=== PATIENT | female | born 1960 | race Caucasian/White ===

== ENCOUNTER 2018-01-10 01:10 | Inpatient (IN) ==
[2018-01-10 01:59] LABS: Basophils % 0.2 % (0.0-0.8); Hematocrit 24.3 VOL% (35.7-47.0); Hemoglobin 7.6 GM/DL (12.0-16.0); Immature Granulocytes % 1.5 %; Immature Granulocytes Absolute 0.31 #; Lymphocytes # 1.1 10*3/uL (1.4-4.0); Mean Corpuscular HGB Conc 31.3 GM/DL (32-36); Mean Corpuscular Hemoglobin 19 PG (27-34); Mean Corpuscular Volume 61.4 FL (87-102); Mean Platelet Volume 9.9 FL (9.6-12.0); Monocytes % 4.6 % (1.7-12.7); Neutrophils # 18.8 10*3/uL (1.4-7.4); Neutrophils % 88.7 % (38.7-73.9); Platelet Count 218 T/CUMM (130-400); Red Blood Count 3.96 MC/CUMM (3.8-5.5); Red Cell Distribution Width 19.2 % (9.3-17.3); White Blood Count 21.2 T/CUMM (4-12)
[2018-01-10 02:09] LABS: INR 1.1; PT Patient Result 11.3 SECS; Partial Thromboplastin Time 26.4 SECS (0-40)
[2018-01-10 02:13] LABS: Alanine Aminotransferase 11 U/L (13-56); Alkaline Phosphatase 95 U/L (45-117); Aspartate Amino Transferase 18 U/L (0-37); Bilirubin,Total < 0.39 MG/DL (0.2-1.0); Blood Urea Nitrogen 14 MG/DL (7-18); Calcium 7.8 MG/DL (8.5-10.1); Glucose 201 MG/DL (74-106); Osmolality,Calculated 266.8 MOS/KG (273-304); Potassium 3.5 MMOL/L (3.5-5.1); Sodium 130 MMOL/L (136-145); Total Protein 5.6 G/DL (6.4-8.3); Troponin I Only < 0.015 NG/ML (0.00-0.045)
[2018-01-10 02:38] LABS: Band Neutrophils 1 % (0-10); Lymphocytes 6 % (20-55); Segmented Neutrophils 91 % (50-85); Total Cells Counted 100
[2018-01-10 02:40] LABS: Hypochromasia 2+; Microcytosis 1+; Platelet Estimate Normal; Target Cells Few
[2018-01-10 02:41] LABS: Elliptocytes Few
[2018-01-10] MEDS ORDERED: DEXTROSE 50% 25 GM/50 ML VIAL IV PRN (04:25)
[2018-01-10] MEDS ORDERED: CALCIUM GLUCONATE 1,000 MG in SODIUM CHLORIDE 0.9% 100 ML IV ONE ×2 (04:25→08:19)
[2018-01-10] MEDS ORDERED: FUROSEMIDE 40 MG/4 ML VIAL IV ONE (04:25)
[2018-01-10] MEDS ORDERED: MORPHINE 2 MG/1 ML SYRINGE IV PRN (04:25)
[2018-01-10] MEDS ORDERED: GLUCAGON 1 MG VIAL IM PRN (04:25)
[2018-01-10] MEDS ORDERED: PIPERACILLIN/TAZOBACTAM 2,250 MG in SODIUM CHLORIDE 0.9% 100 ML IV SCH (05:00)
[2018-01-10] MEDS: PIPERACILLIN/TAZOBACTAM 3,375 MG in SODIUM CHLORIDE 0.9% 100 ML IV SCH ×3 (05:57→22:13)
[2018-01-10 06:20] LABS: Basophils % 0.1 % (0.0-0.8); Hematocrit 21.9 VOL% (35.7-47.0); Hemoglobin 6.8 GM/DL (12.0-16.0); Immature Granulocytes % 0.8 %; Immature Granulocytes Absolute 0.13 #; Lymphocytes # 1.4 10*3/uL (1.4-4.0); Lymphocytes % 8.7 % (21.3-54.2); Mean Corpuscular HGB Conc 31.1 GM/DL (32-36); Mean Corpuscular Hemoglobin 19 PG (27-34); Mean Corpuscular Volume 61.9 FL (87-102); Mean Platelet Volume 10.2 FL (9.6-12.0); Monocytes # 0.7 10*3/uL (0.11-0.8); Monocytes % 4.4 % (1.7-12.7); Neutrophils # 13.6 10*3/uL (1.4-7.4); Platelet Count 209 T/CUMM (130-400); Red Blood Count 3.54 MC/CUMM (3.8-5.5); Red Cell Distribution Width 19.1 % (9.3-17.3); White Blood Count 15.8 T/CUMM (4-12)
[2018-01-10 06:55] LABS: Apearance,Urine CLOUDY (Clear); Bacteria,Urine Occasional /HPF (Few); Bilirubin,Urine Negative (Negative); Blood, Urine Large mg/dL (Negative); Glucose,Urine (UA) 50 mg/dL (Negative); Ketones,Urine Negative (Negative); Mucus,Urine Occasional /LPF (Occasional); Nitrite,Urine Negative (Negative); Protein,Urine 100 MG/DL; RBC,Urine 1497 /HPF (0-4); Squamous Epithelial Cell,Urine Occasional /HPF (0-10); Urine Specific Gravity 1.018 (1.001-1.035); Urine Urobilinogen < 2.0 EU/DL (0.2-1.0); WBC,Urine 73 /HPF (0-6)
[2018-01-10 06:56] LABS: Urine Color Amber (Yellow)
[2018-01-10 06:57] LABS: % Iron Saturation 11.9 % (18-50); Ferritin 640.7 ng/ml (8-252); Thyroid Stimulating Hormone 20.1 uIU/ml (0.358-3.74)
[2018-01-10] MEDS: LEVOTHYROXINE 200 MCG TABLET PO SCH (06:57)
[2018-01-10] MEDS ORDERED: SODIUM CHLORIDE 0.9% 1,000 ML IV PRN (08:07)
[2018-01-10] MEDS: INSULIN REGULAR 100 UNIT/ML SUBCUT SCH ×4 (08:13→20:39)
[2018-01-10 08:53] LABS: Sedimentation Rate-Westergren 77 MM/HR (0-30)
[2018-01-10] MEDS: FERROUS SULFATE 325 MG TABLET PO SCH ×3 (10:28→20:26)
[2018-01-10] MEDS: ASPIRIN EC 81 MG TABLET PO SCH (10:28)
[2018-01-10] MEDS: DOCUSATE SODIUM 100 MG CAPSULE PO SCH ×2 (10:28→20:27)
[2018-01-10] MEDS: PANTOPRAZOLE 40 MG TABLET PO SCH (10:29)
[2018-01-10] MEDS: METOPROLOL TARTRATE 25 MG TABLET PO SCH ×2 (10:29→20:27)
[2018-01-10] MEDS: FOLIC ACID 1 MG TABLET PO SCH (10:29)
[2018-01-10] MEDS: FUROSEMIDE 40 MG/4 ML VIAL IV SCH ×2 (10:29→17:27)
[2018-01-10 11:47] LABS: Total Protein,Pleural Fluid 2.8 G/DL
[2018-01-10 12:43] LABS: Folate 6.4 NG/ML (5.4-24.0); Vitamin B12 501 PG/ML (211-911)
[2018-01-10] MEDS: ALBUTEROL/IPRATROPIUM 3 ML NEB RESP TX SCH ×2 (13:55→19:06)
[2018-01-10] MEDS: ENOXAPARIN 40 MG/0.4 ML SYRINGE SUBCUT SCH (14:27)
[2018-01-10 18:22] LABS: Hematocrit 26.9 VOL% (35.7-47.0)
[2018-01-10] MEDS: ALPRAZolam 0.5 MG TABLET PO SCH (20:27)
[2018-01-10] MEDS: ATORVASTATIN 40 MG TABLET PO SCH (20:27)
[2018-01-11] MEDS: ALBUTEROL/IPRATROPIUM 3 ML NEB RESP TX SCH ×4 (00:34→19:14)
[2018-01-11] MEDS: LEVOTHYROXINE 200 MCG TABLET PO SCH (06:18)
[2018-01-11] MEDS: PIPERACILLIN/TAZOBACTAM 3,375 MG in SODIUM CHLORIDE 0.9% 100 ML IV SCH ×3 (06:18→21:18)
[2018-01-11 07:02] LABS: Basophils % 0.5 % (0.0-0.8); Eosinophils # 0.1 10*3/uL (0.0-0.87); Eosinophils % 1.4 % (0.00-10.9); Hematocrit 25.2 VOL% (35.7-47.0); Hemoglobin 8.4 GM/DL (12.0-16.0); Immature Granulocytes % 0.9 %; Immature Granulocytes Absolute 0.07 #; Lymphocytes # 2.3 10*3/uL (1.4-4.0); Lymphocytes % 29.8 % (21.3-54.2); Mean Corpuscular HGB Conc 33.3 GM/DL (32-36); Mean Corpuscular Hemoglobin 21 PG (27-34); Mean Corpuscular Volume 63.5 FL (87-102); Mean Platelet Volume 9.6 FL (9.6-12.0); Monocytes # 0.6 10*3/uL (0.11-0.8); Monocytes % 7.5 % (1.7-12.7); Neutrophils # 4.7 10*3/uL (1.4-7.4); Neutrophils % 59.9 % (38.7-73.9); Platelet Count 218 T/CUMM (130-400); Red Blood Count 3.97 MC/CUMM (3.8-5.5); Red Cell Distribution Width 24.2 % (9.3-17.3); White Blood Count 7.8 T/CUMM (4-12)
[2018-01-11 07:28] LABS: Hypochromasia 2+; Microcytosis 1+; Target Cells Few
[2018-01-11 07:29] LABS: Ovalocytes Few; Platelet Estimate Normal; Spherocytes Slight
[2018-01-11 07:31] LABS: Osmolality,Calculated 262.5 MOS/KG (273-304); Potassium 3.1 MMOL/L (3.5-5.1)
[2018-01-11 07:37] LABS: Risk Ratio 3.97; VLDL CHOLESTEROL 30.2 MG/DL
[2018-01-11] MEDS ORDERED: CALCIUM CHLORIDE 1,000 MG/10 ML SYRINGE IV ONE (08:19)
[2018-01-11] MEDS: INSULIN REGULAR 100 UNIT/ML SUBCUT SCH ×4 (08:59→21:16)
[2018-01-11] MEDS: POTASSIUM CHLORIDE 20 MEQ TABLET PO SCH (09:08)
[2018-01-11] MEDS: FUROSEMIDE 40 MG/4 ML VIAL IV SCH ×2 (09:08→16:01)
[2018-01-11] MEDS: METOPROLOL TARTRATE 25 MG TABLET PO SCH ×2 (09:09→21:16)
[2018-01-11] MEDS: ASPIRIN EC 81 MG TABLET PO SCH (09:09)
[2018-01-11] MEDS: FERROUS SULFATE 325 MG TABLET PO SCH ×3 (09:09→21:16)
[2018-01-11] MEDS: FOLIC ACID 1 MG TABLET PO SCH (09:09)
[2018-01-11] MEDS: SPIRONOLACTONE 25 MG TABLET PO SCH (09:09)
[2018-01-11] MEDS: PANTOPRAZOLE 40 MG TABLET PO SCH (09:09)
[2018-01-11] MEDS: ALPRAZolam 0.5 MG TABLET PO SCH ×3 (09:09→21:16)
[2018-01-11] MEDS: DOCUSATE SODIUM 100 MG CAPSULE PO SCH ×2 (09:10→21:18)
[2018-01-11] MEDS: ENOXAPARIN 40 MG/0.4 ML SYRINGE SUBCUT SCH (09:11)
[2018-01-11] MEDS: NYSTATIN CREAM 15 GM TUBE TOP SCH ×2 (11:51→21:18)
[2018-01-11] MEDS: ACYCLOVIR 5% OINT 5 GM TUBE TOP SCH ×4 (11:52→21:18)
[2018-01-11] MEDS ORDERED: CALCIUM GLUCONATE 1,000 MG in SODIUM CHLORIDE 0.9% 100 ML IV ONE (12:00)
[2018-01-11] MEDS: LISINOPRIL 2.5 MG TABLET PO SCH (13:41)
[2018-01-11] MEDS: CITALOPRAM 20 MG TABLET PO SCH (15:07)
[2018-01-11] MEDS: CLOPIDOGREL 75 MG TABLET PO SCH (15:07)
[2018-01-11] MEDS: ONDANSETRON 4 MG/2 ML VIAL IV PRN (17:22)
[2018-01-11] MEDS: ATORVASTATIN 40 MG TABLET PO SCH (21:16)
[2018-01-12] MEDS: ALBUTEROL/IPRATROPIUM 3 ML NEB RESP TX SCH ×5 (00:26→23:59)
[2018-01-12] MEDS: PIPERACILLIN/TAZOBACTAM 3,375 MG in SODIUM CHLORIDE 0.9% 100 ML IV SCH ×3 (05:49→21:22)
[2018-01-12] MEDS: ACYCLOVIR 5% OINT 5 GM TUBE TOP SCH ×5 (05:50→21:23)
[2018-01-12 06:48] LABS: Basophils % 0.5 % (0.0-0.8); Eosinophils # 0.1 10*3/uL (0.0-0.87); Eosinophils % 1.4 % (0.00-10.9); Hematocrit 27.4 VOL% (35.7-47.0); Hemoglobin 8.7 GM/DL (12.0-16.0); Immature Granulocytes % 0.5 %; Immature Granulocytes Absolute 0.04 #; Lymphocytes # 1.8 10*3/uL (1.4-4.0); Lymphocytes % 21.1 % (21.3-54.2); Mean Corpuscular HGB Conc 31.8 GM/DL (32-36); Mean Corpuscular Hemoglobin 21 PG (27-34); Mean Corpuscular Volume 65.6 FL (87-102); Mean Platelet Volume 9.9 FL (9.6-12.0); Monocytes # 0.7 10*3/uL (0.11-0.8); Monocytes % 8.2 % (1.7-12.7); Neutrophils % 68.3 % (38.7-73.9); Platelet Count 240 T/CUMM (130-400); Red Blood Count 4.18 MC/CUMM (3.8-5.5); Red Cell Distribution Width 24.1 % (9.3-17.3); White Blood Count 8.7 T/CUMM (4-12)
[2018-01-12] MEDS: LEVOTHYROXINE 200 MCG TABLET PO SCH (06:55)
[2018-01-12 07:13] LABS: Giant Platelets Few; Hypochromasia 1+; Ovalocytes Slight; Platelet Estimate Adequate
[2018-01-12 07:14] LABS: Microcytosis Slight
[2018-01-12 07:24] LABS: Calcium 8.1 MG/DL (8.5-10.1); Osmolality,Calculated 268.1 MOS/KG (273-304)
[2018-01-12] MEDS ORDERED: FUROSEMIDE 20 MG/2 ML VIAL ONE (08:44)
[2018-01-12] MEDS: ASPIRIN EC 81 MG TABLET PO SCH (09:44)
[2018-01-12] MEDS: CITALOPRAM 20 MG TABLET PO SCH (09:44)
[2018-01-12] MEDS: FERROUS SULFATE 325 MG TABLET PO SCH ×3 (09:44→21:21)
[2018-01-12] MEDS: CLOPIDOGREL 75 MG TABLET PO SCH (09:44)
[2018-01-12] MEDS: FOLIC ACID 1 MG TABLET PO SCH (09:44)
[2018-01-12] MEDS: POTASSIUM CHLORIDE 20 MEQ TABLET PO SCH (09:44)
[2018-01-12] MEDS: ALPRAZolam 0.5 MG TABLET PO SCH ×3 (09:44→21:21)
[2018-01-12] MEDS: METOPROLOL TARTRATE 25 MG TABLET PO SCH ×2 (09:46→21:21)
[2018-01-12] MEDS: LISINOPRIL 2.5 MG TABLET PO SCH (09:46)
[2018-01-12] MEDS: PANTOPRAZOLE 40 MG TABLET PO SCH (09:47)
[2018-01-12] MEDS: SPIRONOLACTONE 25 MG TABLET PO SCH (09:47)
[2018-01-12] MEDS: DOCUSATE SODIUM 100 MG CAPSULE PO SCH ×2 (09:47→21:21)
[2018-01-12] MEDS: ENOXAPARIN 40 MG/0.4 ML SYRINGE SUBCUT SCH (09:48)
[2018-01-12] MEDS: INSULIN REGULAR 100 UNIT/ML SUBCUT SCH ×4 (09:48→22:35)
[2018-01-12] MEDS: FUROSEMIDE 40 MG/4 ML VIAL IV SCH ×2 (09:48→15:40)
[2018-01-12] MEDS: ONDANSETRON 4 MG/2 ML VIAL IV PRN (10:03)
[2018-01-12] MEDS: NYSTATIN CREAM 15 GM TUBE TOP SCH ×2 (10:03→21:22)
[2018-01-12] MEDS ORDERED: MAGNESIUM SULF RIDER 2 GM in PREMIX 1 EACH IV ONE (15:03)
[2018-01-12] MEDS: ATORVASTATIN 40 MG TABLET PO SCH (21:21)
[2018-01-13 05:33] LABS: Basophils % 0.5 % (0.0-0.8); Eosinophils # 0.1 10*3/uL (0.0-0.87); Eosinophils % 1.5 % (0.00-10.9); Hematocrit 28.8 VOL% (35.7-47.0); Hemoglobin 9.2 GM/DL (12.0-16.0); Immature Granulocytes % 0.6 %; Immature Granulocytes Absolute 0.05 #; Lymphocytes # 1.7 10*3/uL (1.4-4.0); Lymphocytes % 22.3 % (21.3-54.2); Mean Corpuscular HGB Conc 31.9 GM/DL (32-36); Mean Corpuscular Hemoglobin 21 PG (27-34); Mean Corpuscular Volume 65.9 FL (87-102); Mean Platelet Volume 9.7 FL (9.6-12.0); Monocytes # 0.7 10*3/uL (0.11-0.8); Monocytes % 8.8 % (1.7-12.7); Neutrophils # 5.2 10*3/uL (1.4-7.4); Neutrophils % 66.3 % (38.7-73.9); Platelet Count 246 T/CUMM (130-400); Red Blood Count 4.37 MC/CUMM (3.8-5.5); Red Cell Distribution Width 24.3 % (9.3-17.3); White Blood Count 7.8 T/CUMM (4-12)
[2018-01-13 05:53] LABS: Hypochromasia 2+; Ovalocytes Slight; Platelet Estimate Adequate
[2018-01-13 05:54] LABS: Giant Platelets Few; Microcytosis Slight
[2018-01-13 06:03] LABS: Calcium 8.4 MG/DL (8.5-10.1); Osmolality,Calculated 260.7 MOS/KG (273-304); Potassium 2.9 MMOL/L (3.5-5.1)
[2018-01-13] MEDS: PIPERACILLIN/TAZOBACTAM 3,375 MG in SODIUM CHLORIDE 0.9% 100 ML IV SCH ×3 (06:03→23:18)
[2018-01-13] MEDS: LEVOTHYROXINE 200 MCG TABLET PO SCH (06:04)
[2018-01-13] MEDS: ACYCLOVIR 5% OINT 5 GM TUBE TOP SCH ×5 (06:06→23:19)
[2018-01-13] MEDS: ALBUTEROL/IPRATROPIUM 3 ML NEB RESP TX SCH ×3 (07:17→19:23)
[2018-01-13] MEDS: INSULIN REGULAR 100 UNIT/ML SUBCUT SCH ×4 (08:53→22:44)
[2018-01-13] MEDS: FUROSEMIDE 40 MG/4 ML VIAL IV SCH ×2 (08:54→15:56)
[2018-01-13] MEDS: ENOXAPARIN 40 MG/0.4 ML SYRINGE SUBCUT SCH (08:54)
[2018-01-13] MEDS: PANTOPRAZOLE 40 MG TABLET PO SCH (08:55)
[2018-01-13] MEDS: ASPIRIN EC 81 MG TABLET PO SCH (08:55)
[2018-01-13] MEDS: CITALOPRAM 20 MG TABLET PO SCH (08:55)
[2018-01-13] MEDS: POTASSIUM CHLORIDE 20 MEQ TABLET PO SCH ×2 (08:55→20:39)
[2018-01-13] MEDS: FERROUS SULFATE 325 MG TABLET PO SCH ×3 (08:55→20:39)
[2018-01-13] MEDS: ALPRAZolam 0.5 MG TABLET PO SCH ×3 (08:55→20:39)
[2018-01-13] MEDS: FOLIC ACID 1 MG TABLET PO SCH (08:55)
[2018-01-13] MEDS: SPIRONOLACTONE 50 MG TABLET PO SCH (08:55)
[2018-01-13] MEDS: DOCUSATE SODIUM 100 MG CAPSULE PO SCH ×2 (08:56→20:39)
[2018-01-13] MEDS: NYSTATIN CREAM 15 GM TUBE TOP SCH ×2 (08:56→20:39)
[2018-01-13] MEDS: LISINOPRIL 2.5 MG TABLET PO SCH (11:13)
[2018-01-13] MEDS: METOPROLOL TARTRATE 50 MG TABLET PO SCH ×2 (11:13→22:45)
[2018-01-13] MEDS: ONDANSETRON 4 MG/2 ML VIAL IV PRN (13:00)
[2018-01-13] MEDS ORDERED: POTASSIUM CHLORIDE 20 MEQ TABLET PO ONE (13:04)
[2018-01-13] MEDS: ATORVASTATIN 40 MG TABLET PO SCH (20:39)
[2018-01-14] MEDS: ALBUTEROL/IPRATROPIUM 3 ML NEB RESP TX SCH ×4 (00:21→19:56)
[2018-01-14] MEDS: ACYCLOVIR 5% OINT 5 GM TUBE TOP SCH ×5 (06:14→22:38)
[2018-01-14] MEDS: PIPERACILLIN/TAZOBACTAM 3,375 MG in SODIUM CHLORIDE 0.9% 100 ML IV SCH ×3 (06:14→22:02)
[2018-01-14] MEDS: LEVOTHYROXINE 200 MCG TABLET PO SCH (06:14)
[2018-01-14 07:19] LABS: Basophils # 0.1 10*3/uL (0.0-0.2); Basophils % 0.7 % (0.0-0.8); Eosinophils # 0.2 10*3/uL (0.0-0.87); Eosinophils % 2.4 % (0.00-10.9); Hematocrit 29.7 VOL% (35.7-47.0); Hemoglobin 9.4 GM/DL (12.0-16.0); Immature Granulocytes % 0.5 %; Immature Granulocytes Absolute 0.04 #; Lymphocytes # 2.3 10*3/uL (1.4-4.0); Lymphocytes % 29.8 % (21.3-54.2); Mean Corpuscular HGB Conc 31.6 GM/DL (32-36); Mean Corpuscular Hemoglobin 21 PG (27-34); Mean Corpuscular Volume 65.6 FL (87-102); Mean Platelet Volume 9.6 FL (9.6-12.0); Monocytes # 0.6 10*3/uL (0.11-0.8); Monocytes % 7.6 % (1.7-12.7); Neutrophils # 4.5 10*3/uL (1.4-7.4); Platelet Count 249 T/CUMM (130-400); Red Blood Count 4.53 MC/CUMM (3.8-5.5); Red Cell Distribution Width 24.1 % (9.3-17.3); White Blood Count 7.6 T/CUMM (4-12)
[2018-01-14 07:42] LABS: Hypochromasia 2+; Microcytosis 1+
[2018-01-14 07:43] LABS: Ovalocytes Slight; Platelet Estimate Normal; Target Cells Few
[2018-01-14 07:51] LABS: Calcium 8.9 MG/DL (8.5-10.1); Osmolality,Calculated 258.8 MOS/KG (273-304)
[2018-01-14] MEDS: INSULIN REGULAR 100 UNIT/ML SUBCUT SCH ×4 (08:01→22:06)
[2018-01-14] MEDS: ENOXAPARIN 40 MG/0.4 ML SYRINGE SUBCUT SCH (08:51)
[2018-01-14] MEDS: CITALOPRAM 20 MG TABLET PO SCH (08:51)
[2018-01-14] MEDS: FUROSEMIDE 40 MG/4 ML VIAL IV SCH ×2 (08:51→15:58)
[2018-01-14] MEDS: FERROUS SULFATE 325 MG TABLET PO SCH ×3 (08:51→21:50)
[2018-01-14] MEDS: ASPIRIN EC 81 MG TABLET PO SCH (08:52)
[2018-01-14] MEDS: PANTOPRAZOLE 40 MG TABLET PO SCH (08:52)
[2018-01-14] MEDS: NYSTATIN CREAM 15 GM TUBE TOP SCH ×2 (08:52→22:06)
[2018-01-14] MEDS: SPIRONOLACTONE 50 MG TABLET PO SCH (08:52)
[2018-01-14] MEDS: LISINOPRIL 2.5 MG TABLET PO SCH (08:52)
[2018-01-14] MEDS: FOLIC ACID 1 MG TABLET PO SCH (08:52)
[2018-01-14] MEDS: ALPRAZolam 0.5 MG TABLET PO SCH ×3 (08:52→21:57)
[2018-01-14] MEDS: DOCUSATE SODIUM 100 MG CAPSULE PO SCH ×2 (08:53→21:56)
[2018-01-14] MEDS: METOPROLOL TARTRATE 25 MG TABLET PO SCH ×2 (08:58→21:50)
[2018-01-14] MEDS ORDERED: POTASSIUM CHLORIDE 20 MEQ TABLET PO SCH (09:00)
[2018-01-14] MEDS: FLUCONAZOLE INJ 400 MG in PREMIX 1 EACH IV SCH (10:54)
[2018-01-14 15:04] LABS: % Iron Saturation 28.1 % (18-50)
[2018-01-14] MEDS: ASCORBIC ACID 500 MG TABLET PO SCH ×2 (15:58→21:50)
[2018-01-14] MEDS: ATORVASTATIN 40 MG TABLET PO SCH (21:50)
[2018-01-15] MEDS: ALBUTEROL/IPRATROPIUM 3 ML NEB RESP TX SCH ×5 (01:03→23:54)
[2018-01-15] MEDS: PIPERACILLIN/TAZOBACTAM 3,375 MG in SODIUM CHLORIDE 0.9% 100 ML IV SCH ×3 (07:05→22:50)
[2018-01-15] MEDS: ACYCLOVIR 5% OINT 5 GM TUBE TOP SCH ×2 (07:08→11:43)
[2018-01-15 07:22] LABS: Basophils # 0.1 10*3/uL (0.0-0.2); Basophils % 0.9 % (0.0-0.8); Eosinophils # 0.2 10*3/uL (0.0-0.87); Eosinophils % 2.5 % (0.00-10.9); Hemoglobin 9.6 GM/DL (12.0-16.0); Immature Granulocytes % 0.6 %; Immature Granulocytes Absolute 0.05 #; Lymphocytes # 2.5 10*3/uL (1.4-4.0); Lymphocytes % 30.5 % (21.3-54.2); Mean Corpuscular Hemoglobin 21 PG (27-34); Mean Corpuscular Volume 64.5 FL (87-102); Mean Platelet Volume 9.3 FL (9.6-12.0); Monocytes # 0.6 10*3/uL (0.11-0.8); Monocytes % 6.8 % (1.7-12.7); Neutrophils # 4.7 10*3/uL (1.4-7.4); Neutrophils % 58.7 % (38.7-73.9); Platelet Count 259 T/CUMM (130-400); Red Blood Count 4.65 MC/CUMM (3.8-5.5); Red Cell Distribution Width 23.9 % (9.3-17.3); White Blood Count 8.1 T/CUMM (4-12)
[2018-01-15 07:40] LABS: Calcium 8.7 MG/DL (8.5-10.1); Osmolality,Calculated 254.2 MOS/KG (273-304); Potassium 3.4 MMOL/L (3.5-5.1)
[2018-01-15 08:13] LABS: Giant Platelets Few; Hypochromasia 1+; Microcytosis Slight; Ovalocytes Slight; Platelet Estimate Adequate
[2018-01-15] MEDS: FUROSEMIDE 40 MG/4 ML VIAL IV SCH ×2 (08:39→15:11)
[2018-01-15] MEDS: INSULIN REGULAR 100 UNIT/ML SUBCUT SCH ×4 (08:42→21:12)
[2018-01-15] MEDS: LEVOTHYROXINE 200 MCG TABLET PO SCH (08:42)
[2018-01-15] MEDS: LISINOPRIL 2.5 MG TABLET PO SCH (11:19)
[2018-01-15] MEDS: METOPROLOL TARTRATE 25 MG TABLET PO SCH ×2 (11:19→20:50)
[2018-01-15] MEDS: PANTOPRAZOLE 40 MG TABLET PO SCH (11:19)
[2018-01-15] MEDS: DOCUSATE SODIUM 100 MG CAPSULE PO SCH ×2 (11:19→20:51)
[2018-01-15] MEDS: ASCORBIC ACID 500 MG TABLET PO SCH ×2 (11:19→20:51)
[2018-01-15] MEDS: FERROUS SULFATE 325 MG TABLET PO SCH ×4 (11:19→20:51)
[2018-01-15] MEDS: FOLIC ACID 1 MG TABLET PO SCH ×2 (11:20→11:42)
[2018-01-15] MEDS: NYSTATIN CREAM 15 GM TUBE TOP SCH ×2 (11:20→21:00)
[2018-01-15] MEDS: ALPRAZolam 0.5 MG TABLET PO SCH ×3 (11:42→20:52)
[2018-01-15] MEDS: SPIRONOLACTONE 50 MG TABLET PO SCH (11:42)
[2018-01-15] MEDS: FLUCONAZOLE INJ 400 MG in PREMIX 1 EACH IV SCH (11:42)
[2018-01-15] MEDS: POTASSIUM CHLORIDE 20 MEQ TABLET PO SCH ×2 (11:42→20:51)
[2018-01-15] MEDS: CITALOPRAM 20 MG TABLET PO SCH (11:42)
[2018-01-15] MEDS ORDERED: ETOMIDATE 20 MG/10 ML VIAL IV ONE (12:30)
[2018-01-15] MEDS ORDERED: PROPOFOL 200 MG/20 ML VIAL IV ONE (12:30)
[2018-01-15] MEDS ORDERED: LIDOCAINE 2% 5 ML VIAL ONE (12:30)
[2018-01-15] MEDS ORDERED: PHENYLEPHRINE 1 MG/10 ML SYRINGE IV ONE (12:30)
[2018-01-15] MEDS: ATORVASTATIN 40 MG TABLET PO SCH (20:52)
[2018-01-16 07:05] LABS: Basophils # 0.1 10*3/uL (0.0-0.2); Basophils % 0.4 % (0.0-0.8); Eosinophils # 0.2 10*3/uL (0.0-0.87); Eosinophils % 1.4 % (0.00-10.9); Hematocrit 28.7 VOL% (35.7-47.0); Hemoglobin 9.2 GM/DL (12.0-16.0); Immature Granulocytes % 0.9 %; Lymphocytes # 2.1 10*3/uL (1.4-4.0); Lymphocytes % 18.5 % (21.3-54.2); Mean Corpuscular HGB Conc 32.1 GM/DL (32-36); Mean Corpuscular Hemoglobin 21 PG (27-34); Mean Corpuscular Volume 65.5 FL (87-102); Mean Platelet Volume 9.9 FL (9.6-12.0); Monocytes # 0.7 10*3/uL (0.11-0.8); Monocytes % 5.8 % (1.7-12.7); Neutrophils # 8.2 10*3/uL (1.4-7.4); Platelet Count 245 T/CUMM (130-400); Red Blood Count 4.38 MC/CUMM (3.8-5.5); Red Cell Distribution Width 23.6 % (9.3-17.3); White Blood Count 11.2 T/CUMM (4-12)
[2018-01-16] MEDS: LEVOTHYROXINE 200 MCG TABLET PO SCH (07:07)
[2018-01-16] MEDS: PIPERACILLIN/TAZOBACTAM 3,375 MG in SODIUM CHLORIDE 0.9% 100 ML IV SCH ×2 (07:07→15:00)
[2018-01-16 07:29] LABS: Microcytosis 3+; Platelet Estimate Normal
[2018-01-16 07:35] LABS: Calcium 8.7 MG/DL (8.5-10.1); Osmolality,Calculated 252.4 MOS/KG (273-304); Potassium 4.2 MMOL/L (3.5-5.1)
[2018-01-16 07:36] LABS: Calcium 8.9 MG/DL (8.5-10.1); Osmolality,Calculated 252.4 MOS/KG (273-304); Potassium 4.1 MMOL/L (3.5-5.1)
[2018-01-16] MEDS: ALBUTEROL/IPRATROPIUM 3 ML NEB RESP TX SCH ×3 (08:06→20:10)
[2018-01-16] MEDS: INSULIN REGULAR 100 UNIT/ML SUBCUT SCH ×4 (08:12→22:06)
[2018-01-16] MEDS: CITALOPRAM 20 MG TABLET PO SCH (09:01)
[2018-01-16] MEDS: ALPRAZolam 0.5 MG TABLET PO SCH ×3 (09:01→21:57)
[2018-01-16] MEDS: METOPROLOL TARTRATE 25 MG TABLET PO SCH ×2 (09:01→21:57)
[2018-01-16] MEDS: ASCORBIC ACID 500 MG TABLET PO SCH ×2 (09:01→21:57)
[2018-01-16] MEDS: FERROUS SULFATE 325 MG TABLET PO SCH ×3 (09:01→21:56)
[2018-01-16] MEDS: LISINOPRIL 2.5 MG TABLET PO SCH (09:01)
[2018-01-16] MEDS: SPIRONOLACTONE 50 MG TABLET PO SCH (09:02)
[2018-01-16] MEDS: POTASSIUM CHLORIDE 20 MEQ TABLET PO SCH ×2 (09:02→21:56)
[2018-01-16] MEDS: FOLIC ACID 1 MG TABLET PO SCH (09:02)
[2018-01-16] MEDS: FUROSEMIDE 40 MG/4 ML VIAL IV SCH ×2 (09:02→16:15)
[2018-01-16] MEDS: NYSTATIN CREAM 15 GM TUBE TOP SCH ×2 (09:02→22:07)
[2018-01-16] MEDS: DOCUSATE SODIUM 100 MG CAPSULE PO SCH ×2 (09:02→22:06)
[2018-01-16] MEDS: PANTOPRAZOLE 40 MG TABLET PO SCH (09:02)
[2018-01-16] MEDS: FLUCONAZOLE INJ 400 MG in PREMIX 1 EACH IV SCH (10:28)
[2018-01-16] MEDS: ATORVASTATIN 40 MG TABLET PO SCH (21:56)
[2018-01-17] MEDS: ALBUTEROL/IPRATROPIUM 3 ML NEB RESP TX SCH ×4 (00:51→19:44)
[2018-01-17] MEDS: LEVOTHYROXINE 200 MCG TABLET PO SCH (06:57)
[2018-01-17] MEDS: INSULIN REGULAR 100 UNIT/ML SUBCUT SCH ×4 (07:26→21:39)
[2018-01-17] MEDS: FUROSEMIDE 40 MG/4 ML VIAL IV SCH (08:38)
[2018-01-17] MEDS: FOLIC ACID 1 MG TABLET PO SCH (08:39)
[2018-01-17] MEDS: FERROUS SULFATE 325 MG TABLET PO SCH ×3 (08:39→21:38)
[2018-01-17] MEDS: LISINOPRIL 2.5 MG TABLET PO SCH (08:39)
[2018-01-17] MEDS: CITALOPRAM 20 MG TABLET PO SCH (08:39)
[2018-01-17] MEDS: POTASSIUM CHLORIDE 20 MEQ TABLET PO SCH ×2 (08:39→21:39)
[2018-01-17] MEDS: ALPRAZolam 0.5 MG TABLET PO SCH ×3 (08:39→21:38)
[2018-01-17] MEDS: SPIRONOLACTONE 50 MG TABLET PO SCH (08:40)
[2018-01-17] MEDS: ENOXAPARIN 40 MG/0.4 ML SYRINGE SUBCUT SCH (08:40)
[2018-01-17] MEDS: ASCORBIC ACID 500 MG TABLET PO SCH ×2 (08:40→21:38)
[2018-01-17] MEDS: FLUCONAZOLE 200 MG TABLET PO SCH (08:40)
[2018-01-17] MEDS: ASPIRIN EC 81 MG TABLET PO SCH (08:40)
[2018-01-17] MEDS: PANTOPRAZOLE 40 MG TABLET PO SCH (08:40)
[2018-01-17] MEDS: METOPROLOL TARTRATE 25 MG TABLET PO SCH ×2 (08:40→21:39)
[2018-01-17] MEDS: DOCUSATE SODIUM 100 MG CAPSULE PO SCH ×2 (08:41→21:39)
[2018-01-17] MEDS: NYSTATIN CREAM 15 GM TUBE TOP SCH ×2 (08:41→21:39)
[2018-01-17 09:49] LABS: Hematocrit 28.1 VOL% (35.7-47.0); Hemoglobin 8.9 GM/DL (12.0-16.0)
[2018-01-17 10:09] LABS: Calcium 8.3 MG/DL (8.5-10.1); Osmolality,Calculated 253.6 MOS/KG (273-304)
[2018-01-17] MEDS: ATORVASTATIN 40 MG TABLET PO SCH (21:38)
[2018-01-18] MEDS: ALBUTEROL/IPRATROPIUM 3 ML NEB RESP TX SCH ×4 (00:31→19:22)
[2018-01-18] MEDS: LEVOTHYROXINE 200 MCG TABLET PO SCH (06:53)
[2018-01-18 08:57] LABS: Calcium 8.3 MG/DL (8.5-10.1); Osmolality,Calculated 248.6 MOS/KG (273-304); Potassium 4.4 MMOL/L (3.5-5.1)
[2018-01-18] MEDS: FERROUS SULFATE 325 MG TABLET PO SCH ×3 (09:15→21:29)
[2018-01-18] MEDS: ASCORBIC ACID 500 MG TABLET PO SCH ×2 (09:15→21:28)
[2018-01-18] MEDS: METOPROLOL TARTRATE 25 MG TABLET PO SCH ×2 (09:15→21:31)
[2018-01-18] MEDS: SODIUM CHLORIDE 1 GM TABLET PO SCH ×2 (09:15→21:28)
[2018-01-18] MEDS: ENOXAPARIN 40 MG/0.4 ML SYRINGE SUBCUT SCH (09:15)
[2018-01-18] MEDS: SPIRONOLACTONE 50 MG TABLET PO SCH (09:16)
[2018-01-18] MEDS: POTASSIUM CHLORIDE 20 MEQ TABLET PO SCH ×2 (09:16→21:29)
[2018-01-18] MEDS: ASPIRIN EC 81 MG TABLET PO SCH (09:16)
[2018-01-18] MEDS: PANTOPRAZOLE 40 MG TABLET PO SCH (09:16)
[2018-01-18] MEDS: FOLIC ACID 1 MG TABLET PO SCH (09:16)
[2018-01-18] MEDS: DOCUSATE SODIUM 100 MG CAPSULE PO SCH ×3 (09:16→21:31)
[2018-01-18] MEDS: FLUCONAZOLE 200 MG TABLET PO SCH (09:16)
[2018-01-18] MEDS: NYSTATIN CREAM 15 GM TUBE TOP SCH ×2 (09:17→21:31)
[2018-01-18] MEDS: LISINOPRIL 2.5 MG TABLET PO SCH (09:17)
[2018-01-18] MEDS: INSULIN REGULAR 100 UNIT/ML SUBCUT SCH ×4 (09:24→21:39)
[2018-01-18] MEDS: ALPRAZolam 0.5 MG TABLET PO PRN (18:02)
[2018-01-18] MEDS: LOPERAMIDE 2 MG CAPSULE PO PRN ×2 (18:31→21:32)
[2018-01-18] MEDS ORDERED: ALPRAZolam 0.5 MG TABLET PO SCH (21:00)
[2018-01-18] MEDS: ATORVASTATIN 40 MG TABLET PO SCH (21:29)
[2018-01-19] MEDS: ALBUTEROL/IPRATROPIUM 3 ML NEB RESP TX SCH ×4 (00:42→19:11)
[2018-01-19 05:57] LABS: Basophils # 0.1 10*3/uL (0.0-0.2); Basophils % 0.4 % (0.0-0.8); Eosinophils # 0.2 10*3/uL (0.0-0.87); Eosinophils % 1.3 % (0.00-10.9); Immature Granulocytes % 0.6 %; Immature Granulocytes Absolute 0.09 #; Lymphocytes # 2.6 10*3/uL (1.4-4.0); Lymphocytes % 18.5 % (21.3-54.2); Mean Corpuscular HGB Conc 32.1 GM/DL (32-36); Mean Corpuscular Hemoglobin 21 PG (27-34); Mean Platelet Volume 10.2 FL (9.6-12.0); Monocytes # 0.6 10*3/uL (0.11-0.8); Monocytes % 4.3 % (1.7-12.7); Neutrophils # 10.6 10*3/uL (1.4-7.4); Neutrophils % 74.9 % (38.7-73.9); Platelet Count 255 T/CUMM (130-400); Red Blood Count 4.31 MC/CUMM (3.8-5.5); Red Cell Distribution Width 24.1 % (9.3-17.3); White Blood Count 14.2 T/CUMM (4-12)
[2018-01-19 06:17] LABS: Hypochromasia Slight; Platelet Estimate Normal
[2018-01-19 06:18] LABS: Microcytosis 1+
[2018-01-19 06:20] LABS: Calcium 8.1 MG/DL (8.5-10.1); Osmolality,Calculated 250.5 MOS/KG (273-304)
[2018-01-19 06:40] LABS: Hemoglobin A1 (Alkaline) 94.9 % (96.5-98.5)
[2018-01-19 06:41] LABS: Hemoglobin A2 (Alkaline) 5.1 % (1.5-3.5)
[2018-01-19] MEDS ORDERED: DIAZEPAM 5 MG TABLET PO ONE (08:49)
[2018-01-19] MEDS: DIAZEPAM 5 MG TABLET PO ONE ×2 (11:16→11:17)
[2018-01-19] MEDS: INSULIN REGULAR 100 UNIT/ML SUBCUT SCH ×4 (11:21→20:11)
[2018-01-19] MEDS: LISINOPRIL 2.5 MG TABLET PO SCH (12:45)
[2018-01-19] MEDS: SPIRONOLACTONE 50 MG TABLET PO SCH (12:45)
[2018-01-19] MEDS: METOPROLOL TARTRATE 25 MG TABLET PO SCH ×2 (12:45→20:12)
[2018-01-19 12:54] LABS: Lymphocytes,Pleural Fluid 39 %; Monocytes,Pleural Fluid 5 %; Neutrophils,Pleural Fluid 56 %
[2018-01-19 12:56] LABS: RBC,Pleural Fluid > 100000 T/CUMM
[2018-01-19] MEDS: FERROUS SULFATE 325 MG TABLET PO SCH ×3 (14:05→20:11)
[2018-01-19] MEDS: FLUCONAZOLE 200 MG TABLET PO SCH (14:05)
[2018-01-19] MEDS: ASPIRIN EC 81 MG TABLET PO SCH (14:05)
[2018-01-19] MEDS: LEVOTHYROXINE 200 MCG TABLET PO SCH (14:06)
[2018-01-19] MEDS: PANTOPRAZOLE 40 MG TABLET PO SCH (14:06)
[2018-01-19] MEDS: DOCUSATE SODIUM 100 MG CAPSULE PO SCH ×2 (14:06→20:11)
[2018-01-19] MEDS: ASCORBIC ACID 500 MG TABLET PO SCH ×2 (14:06→20:13)
[2018-01-19] MEDS: CLOPIDOGREL 75 MG TABLET PO SCH (14:06)
[2018-01-19] MEDS: FOLIC ACID 1 MG TABLET PO SCH (14:06)
[2018-01-19] MEDS: POTASSIUM CHLORIDE 20 MEQ TABLET PO SCH ×2 (14:07→20:11)
[2018-01-19] MEDS: ENOXAPARIN 40 MG/0.4 ML SYRINGE SUBCUT SCH (14:07)
[2018-01-19] MEDS: SODIUM CHLORIDE 0.45% 1,000 ML IV SCH (14:08)
[2018-01-19] MEDS: ALPRAZolam 0.5 MG TABLET PO PRN ×2 (14:14→20:10)
[2018-01-19] MEDS: SODIUM CHLORIDE 1 GM TABLET PO SCH ×3 (16:42→20:10)
[2018-01-19] MEDS: NYSTATIN CREAM 15 GM TUBE TOP SCH ×2 (16:43→20:13)
[2018-01-19] MEDS: ATORVASTATIN 40 MG TABLET PO SCH (20:11)
[2018-01-19] MEDS: MICAFUNGIN 100 MG in SODIUM CHLORIDE 0.9% 100 ML IV SCH (20:12)
[2018-01-19] MEDS: LOPERAMIDE 2 MG CAPSULE PO PRN (21:13)
[2018-01-19] MEDS ORDERED: FUROSEMIDE 40 MG/4 ML VIAL IM ONE (23:37)
[2018-01-19] MEDS ORDERED: ETOMIDATE 20 MG/10 ML VIAL IV ONE (23:44)
[2018-01-19] MEDS ORDERED: SUCCINYLCHOLINE 200 MG/10 ML VIAL ONE (23:45)
[2018-01-19] MEDS ORDERED: FUROSEMIDE 40 MG/4 ML VIAL IV ONE (23:54)
[2018-01-20] MEDS ORDERED: FUROSEMIDE 40 MG/4 ML VIAL IV ONE
[2018-01-20 00:02] LABS: ABG Base Excess -6.8 MMOL/L (-2.5-2.5); ABG HCO3 22.8 MMOL/L (20-26); ABG Oxygen Saturation 98.4 % (95-100); ABG PCO2 68.8 MM HG (35-48); ABG PO2 172.2 MM HG (80-95); ABG TCO2 24.9 MMOL/L (23-27)
[2018-01-20 00:06] LABS: ABG PH 7.138 (7.35-7.45)
[2018-01-20] MEDS ORDERED: VECURONIUM 10 MG VIAL IV ONE ×2 (00:21→00:27)
[2018-01-20] MEDS ORDERED: ETOMIDATE 20 MG/10 ML VIAL IV ONE (00:27)
[2018-01-20] MEDS ORDERED: PROPOFOL 1,000 MG/100 ML BOTTLE IV ONE (00:29)
[2018-01-20] MEDS: ALBUTEROL/IPRATROPIUM 3 ML NEB RESP TX SCH ×4 (00:31→20:40)
[2018-01-20] MEDS ORDERED: NOREPINEPHRINE 4 MG/4 ML VIAL IV ONE (00:31)
[2018-01-20] MEDS: PROPOFOL 1,000 MG/100 ML BOTTLE IV SCH ×2 (00:32→09:40)
[2018-01-20] MEDS: NOREPINEPHRINE 8 MG in SODIUM CHLORIDE 0.9% 242 ML IV SCH ×3 (00:34→21:30)
[2018-01-20 00:57] LABS: Basophils # 0.1 10*3/uL (0.0-0.2); Basophils % 0.5 % (0.0-0.8); Eosinophils # 0.3 10*3/uL (0.0-0.87); Eosinophils % 1.4 % (0.00-10.9); Hematocrit 30.4 VOL% (35.7-47.0); Hemoglobin 9.5 GM/DL (12.0-16.0); Immature Granulocytes % 1.1 %; Immature Granulocytes Absolute 0.25 #; Lymphocytes # 7.1 10*3/uL (1.4-4.0); Lymphocytes % 31.8 % (21.3-54.2); Mean Corpuscular HGB Conc 31.3 GM/DL (32-36); Mean Corpuscular Hemoglobin 21 PG (27-34); Mean Corpuscular Volume 65.7 FL (87-102); Mean Platelet Volume 10.5 FL (9.6-12.0); Monocytes % 4.4 % (1.7-12.7); Neutrophils # 13.7 10*3/uL (1.4-7.4); Neutrophils % 60.8 % (38.7-73.9); Platelet Count 424 T/CUMM (130-400); Red Blood Count 4.63 MC/CUMM (3.8-5.5); Red Cell Distribution Width 24.9 % (9.3-17.3); White Blood Count 22.5 T/CUMM (4-12)
[2018-01-20 01:20] LABS: Band Neutrophils 2 % (0-10); Eosinophils 1 % (0-10); Hypochromasia Slight; Lymphocytes 27 % (20-55); Platelet Estimate Normal; Segmented Neutrophils 67 % (50-85); Total Cells Counted 100
[2018-01-20 01:21] LABS: Ovalocytes Few; Target Cells Slight; Tear Drop Cells Slight
[2018-01-20 01:31] LABS: Lactic Acid 2.8 MMOL/L (0.4-2.0)
[2018-01-20 01:31] LABS: Calcium 8.4 MG/DL (8.5-10.1); Osmolality,Calculated 255.9 MOS/KG (273-304); Potassium 5.3 MMOL/L (3.5-5.1)
[2018-01-20 01:36] LABS: Alanine Aminotransferase 21 U/L (13-56); Albumin 2.2 G/DL (3.4-5.0); Alkaline Phosphatase 88 U/L (45-117); Aspartate Amino Transferase 40 U/L (0-37); Bilirubin,Total < 0.39 MG/DL (0.2-1.0); Blood Urea Nitrogen 16 MG/DL (7-18); Calcium 8.3 MG/DL (8.5-10.1); Glucose 269 MG/DL (74-106); Osmolality,Calculated 254.9 MOS/KG (273-304); Potassium 5.4 MMOL/L (3.5-5.1); Sodium 122 MMOL/L (136-145); Total Protein 5.7 G/DL (6.4-8.3); Troponin I Only < 0.015 NG/ML (0.00-0.045)
[2018-01-20 01:52] LABS: ABG Base Excess -4.6 MMOL/L (-2.5-2.5); ABG HCO3 20.6 MMOL/L (20-26); ABG PCO2 43.1 MM HG (35-48); ABG PH 7.306 (7.35-7.45); ABG TCO2 19.8 MMOL/L (23-27)
[2018-01-20 01:55] LABS: ABG Oxygen Saturation 99.7 % (95-100)
[2018-01-20 03:54] LABS: Apearance,Urine CLOUDY (Clear); Bilirubin,Urine Negative (Negative); Blood, Urine Large mg/dL (Negative); Glucose,Urine (UA) Negative (Negative); Ketones,Urine Negative (Negative); Mucus,Urine Occasional /LPF (Occasional); Nitrite,Urine Negative (Negative); Protein,Urine 100 MG/DL; RBC,Urine 332 /HPF (0-4); Urine Color Amber (Yellow); Urine Specific Gravity 1.014 (1.001-1.035); Urine Urobilinogen < 2.0 EU/DL (0.2-1.0); WBC,Urine 49 /HPF (0-6)
[2018-01-20 04:52] LABS: Basophils # 0.1 10*3/uL (0.0-0.2); Basophils % 0.3 % (0.0-0.8); Eosinophils # 0.1 10*3/uL (0.0-0.87); Eosinophils % 0.2 % (0.00-10.9); Hematocrit 28.5 VOL% (35.7-47.0); Hemoglobin 9.4 GM/DL (12.0-16.0); Immature Granulocytes % 1.1 %; Immature Granulocytes Absolute 0.25 #; Lymphocytes # 1.3 10*3/uL (1.4-4.0); Lymphocytes % 5.6 % (21.3-54.2); Mean Corpuscular Hemoglobin 21 PG (27-34); Mean Corpuscular Volume 63.9 FL (87-102); Mean Platelet Volume 10.7 FL (9.6-12.0); Monocytes # 1.1 10*3/uL (0.11-0.8); Monocytes % 4.7 % (1.7-12.7); Neutrophils # 20.8 10*3/uL (1.4-7.4); Neutrophils % 88.1 % (38.7-73.9); Platelet Count 355 T/CUMM (130-400); Red Blood Count 4.46 MC/CUMM (3.8-5.5); Red Cell Distribution Width 24.5 % (9.3-17.3); White Blood Count 23.6 T/CUMM (4-12)
[2018-01-20 05:17] LABS: Band Neutrophils 1 % (0-10); Eosinophils 1 % (0-10); Giant Platelets Few; Hypochromasia 1+; Lymphocytes 4 % (20-55); Microcytosis Slight; Ovalocytes Slight; Platelet Estimate Adequate; Segmented Neutrophils 88 % (50-85); Total Cells Counted 100
[2018-01-20] MEDS: VANCOMYCIN INJ 1,500 MG in SODIUM CHLORIDE 0.9% 500 ML IV SCH (05:23)
[2018-01-20 05:25] LABS: Albumin 2.1 G/DL (3.4-5.0); Bilirubin,Total 0.5 MG/DL (0.2-1.0); Calcium 8.5 MG/DL (8.5-10.1); Osmolality,Calculated 253.6 MOS/KG (273-304); Potassium 4.7 MMOL/L (3.5-5.1); Total Protein 5.8 G/DL (6.4-8.3)
[2018-01-20] MEDS ORDERED: FUROSEMIDE 20 MG/2 ML VIAL ONE (08:59)
[2018-01-20] MEDS: FUROSEMIDE 40 MG/4 ML VIAL IV SCH ×2 (09:37→17:00)
[2018-01-20] MEDS: LEVOTHYROXINE 200 MCG TABLET PO SCH (09:37)
[2018-01-20 09:38] LABS: Free T4 (Free Thyroxine) 1.51 NG/DL (0.76-1.46); Thyroid Stimulating Hormone 35.3 uIU/ml (0.358-3.74)
[2018-01-20] MEDS: METOPROLOL TARTRATE 25 MG TABLET PO SCH (09:38)
[2018-01-20] MEDS: PANTOPRAZOLE 40 MG TABLET PO SCH (09:38)
[2018-01-20] MEDS: FOLIC ACID 1 MG TABLET PO SCH (09:38)
[2018-01-20] MEDS: LEVOFLOXACIN 750 MG TABLET PO SCH (09:38)
[2018-01-20] MEDS: SPIRONOLACTONE 50 MG TABLET PO SCH (09:38)
[2018-01-20] MEDS: ASCORBIC ACID 500 MG TABLET PO SCH ×2 (09:38→21:20)
[2018-01-20] MEDS: POTASSIUM CHLORIDE 20 MEQ TABLET PO SCH (09:38)
[2018-01-20] MEDS: CLOPIDOGREL 75 MG TABLET PO SCH (09:38)
[2018-01-20] MEDS: ENOXAPARIN 40 MG/0.4 ML SYRINGE SUBCUT SCH (09:39)
[2018-01-20] MEDS: FERROUS SULFATE 325 MG TABLET PO SCH ×3 (09:39→21:20)
[2018-01-20] MEDS: SODIUM CHLORIDE 0.45% 1,000 ML IV SCH (09:39)
[2018-01-20] MEDS: DIAZEPAM 5 MG TABLET PO PRN ×2 (10:16→21:21)
[2018-01-20] MEDS: ONDANSETRON 4 MG/2 ML VIAL IV PRN (10:27)
[2018-01-20] MEDS: LISINOPRIL 2.5 MG TABLET PO SCH (10:31)
[2018-01-20] MEDS: INSULIN REGULAR 100 UNIT/ML SUBCUT SCH ×3 (10:37→17:21)
[2018-01-20] MEDS: DOCUSATE SODIUM 100 MG CAPSULE PO SCH (10:38)
[2018-01-20] MEDS: ASPIRIN EC 81 MG TABLET PO SCH (10:38)
[2018-01-20] MEDS: SODIUM CHLORIDE 1 GM TABLET PO SCH ×4 (11:52→21:20)
[2018-01-20] MEDS: PIPERACILLIN/TAZOBACTAM 3,375 MG in SODIUM CHLORIDE 0.9% 100 ML IV SCH ×2 (11:58→22:30)
[2018-01-20] MEDS: ASPIRIN CHEW 81 MG TABLET PO SCH (12:35)
[2018-01-20] MEDS: NYSTATIN CREAM 15 GM TUBE TOP SCH ×2 (13:56→21:20)
[2018-01-20] MEDS: ALPRAZolam 0.5 MG TABLET PO PRN (17:23)
[2018-01-20] MEDS: DOCUSATE SODIUM 100 MG/10 ML UDCUP PO SCH (21:00)
[2018-01-20] MEDS: MICAFUNGIN 100 MG in SODIUM CHLORIDE 0.9% 100 ML IV SCH (21:12)
[2018-01-20] MEDS: ATORVASTATIN 40 MG TABLET PO SCH (21:21)
[2018-01-21] MEDS: INSULIN REGULAR 100 UNIT/ML SUBCUT SCH ×5 (00:35→23:17)
[2018-01-21] MEDS: ALBUTEROL/IPRATROPIUM 3 ML NEB RESP TX SCH ×4 (01:19→19:59)
[2018-01-21] MEDS: PROPOFOL 1,000 MG/100 ML BOTTLE IV SCH ×2 (03:07→06:17)
[2018-01-21] MEDS: NOREPINEPHRINE 8 MG in SODIUM CHLORIDE 0.9% 242 ML IV SCH ×3 (03:09→22:51)
[2018-01-21] MEDS: ALPRAZolam 0.5 MG TABLET PO PRN ×4 (03:39→20:38)
[2018-01-21] MEDS: DIAZEPAM 5 MG TABLET PO PRN ×4 (03:39→20:39)
[2018-01-21 04:36] LABS: ABG Base Excess 0.6 MMOL/L (-2.5-2.5); ABG Oxygen Saturation 99.6 % (95-100); ABG PCO2 38.1 MM HG (35-48); ABG PH 7.424 (7.35-7.45); ABG TCO2 22.9 MMOL/L (23-27)
[2018-01-21] MEDS: VANCOMYCIN INJ 1,500 MG in SODIUM CHLORIDE 0.9% 500 ML IV SCH (05:27)
[2018-01-21 05:41] LABS: Free T4 (Free Thyroxine) 1.49 NG/DL (0.76-1.46); Thyroid Stimulating Hormone 16.5 uIU/ml (0.358-3.74)
[2018-01-21] MEDS ORDERED: MAGNESIUM SULF RIDER 4 GM in PREMIX 1 EACH IV PRN (07:36)
[2018-01-21] MEDS ORDERED: MAGNESIUM SULF RIDER 2 GM in PREMIX 1 EACH IV PRN (07:36)
[2018-01-21] MEDS ORDERED: FUROSEMIDE 20 MG/2 ML VIAL ONE (09:28)
[2018-01-21] MEDS: PIPERACILLIN/TAZOBACTAM 3,375 MG in SODIUM CHLORIDE 0.9% 100 ML IV SCH ×2 (11:13→16:52)
[2018-01-21] MEDS: FUROSEMIDE 40 MG/4 ML VIAL IV SCH ×2 (11:13→16:52)
[2018-01-21] MEDS: ASPIRIN CHEW 81 MG TABLET PO SCH (11:14)
[2018-01-21] MEDS: DOCUSATE SODIUM 100 MG/10 ML UDCUP PO SCH ×2 (11:14→20:29)
[2018-01-21] MEDS: FERROUS SULFATE 325 MG TABLET PO SCH ×3 (11:15→20:25)
[2018-01-21] MEDS: LEVOFLOXACIN 750 MG TABLET PO SCH (11:15)
[2018-01-21] MEDS: FOLIC ACID 1 MG TABLET PO SCH (11:15)
[2018-01-21] MEDS: PANTOPRAZOLE 40 MG TABLET PO SCH (11:16)
[2018-01-21] MEDS: ASCORBIC ACID 500 MG TABLET PO SCH ×2 (11:16→20:25)
[2018-01-21] MEDS: CLOPIDOGREL 75 MG TABLET PO SCH (11:16)
[2018-01-21] MEDS: ENOXAPARIN 40 MG/0.4 ML SYRINGE SUBCUT SCH (11:16)
[2018-01-21] MEDS: NYSTATIN CREAM 15 GM TUBE TOP SCH ×2 (11:16→20:29)
[2018-01-21] MEDS: SODIUM CHLORIDE 1 GM TABLET PO SCH ×4 (11:16→20:25)
[2018-01-21] MEDS: ZINC OXIDE PASTE 113 GM TUBE TOP PRN (11:19)
[2018-01-21] MEDS: ONDANSETRON 4 MG/2 ML VIAL IV PRN ×3 (11:20→20:46)
[2018-01-21] MEDS: fentaNYL 100 MCG/2 ML VIAL IV PRN ×3 (11:20→15:00)
[2018-01-21] MEDS ORDERED: MORPHINE 2 MG/1 ML SYRINGE ONE (15:41)
[2018-01-21] MEDS ORDERED: PROMETHAZINE 25 MG/1 ML VIAL ONE (15:41)
[2018-01-21] MEDS: MORPHINE 2 MG/1 ML SYRINGE IV PRN ×2 (16:00→20:37)
[2018-01-21] MEDS: PROMETHAZINE INJ 25 MG in SODIUM CHLORIDE 0.9% 50 ML IV PRN (16:55)
[2018-01-21] MEDS: MAGNESIUM OXIDE 400 MG TABLET PO SCH (20:25)
[2018-01-21] MEDS: METOPROLOL TARTRATE 25 MG TABLET PO SCH (20:25)
[2018-01-21] MEDS: ATORVASTATIN 40 MG TABLET PO SCH (20:25)
[2018-01-22] MEDS: PIPERACILLIN/TAZOBACTAM 3,375 MG in SODIUM CHLORIDE 0.9% 100 ML IV SCH ×3 (00:06→16:15)
[2018-01-22] MEDS: ONDANSETRON 4 MG/2 ML VIAL IV PRN (01:27)
[2018-01-22] MEDS: MORPHINE 2 MG/1 ML SYRINGE IV PRN ×4 (01:28→17:04)
[2018-01-22] MEDS: PROPOFOL 1,000 MG/100 ML BOTTLE IV SCH (01:43)
[2018-01-22] MEDS: ALBUTEROL/IPRATROPIUM 3 ML NEB RESP TX SCH ×4 (02:19→20:02)
[2018-01-22] MEDS: VANCOMYCIN INJ 1,500 MG in SODIUM CHLORIDE 0.9% 500 ML IV SCH (04:09)
[2018-01-22 04:54] LABS: Hematocrit 24.6 VOL% (35.7-47.0); Hemoglobin 8.2 GM/DL (12.0-16.0); Lymphocytes % 9.4 % (21.3-54.2); Mean Corpuscular HGB Conc 33.3 GM/DL (32-36); Mean Corpuscular Hemoglobin 21 PG (27-34); Mean Corpuscular Volume 63.6 FL (87-102); Mean Platelet Volume 9.8 FL (9.6-12.0); Neutrophils % 84.7 % (38.7-73.9); Platelet Count 311 T/CUMM (130-400); Red Blood Count 3.87 MC/CUMM (3.8-5.5); Red Cell Distribution Width 24.7 % (9.3-17.3)
[2018-01-22 04:55] LABS: Basophils # 0.1 10*3/uL (0.0-0.2); Basophils % 0.2 % (0.0-0.8); Eosinophils # 0.1 10*3/uL (0.0-0.87); Eosinophils % 0.5 % (0.00-10.9); Immature Granulocytes % 0.8 %; Immature Granulocytes Absolute 0.17 #; Monocytes # 0.9 10*3/uL (0.11-0.8); Monocytes % 4.4 % (1.7-12.7); Neutrophils # 17.8 10*3/uL (1.4-7.4)
[2018-01-22 05:14] LABS: Hypochromasia 1+
[2018-01-22 05:15] LABS: Microcytosis 1+; Ovalocytes Slight; Platelet Estimate Normal; Target Cells Slight
[2018-01-22 05:29] LABS: Calcium 8.5 MG/DL (8.5-10.1); Osmolality,Calculated 265.5 MOS/KG (273-304); Potassium 3.6 MMOL/L (3.5-5.1)
[2018-01-22] MEDS: INSULIN REGULAR 100 UNIT/ML SUBCUT SCH ×3 (05:54→17:04)
[2018-01-22 06:57] LABS: Lymphocytes 4 % (20-55); Segmented Neutrophils 93 % (50-85); Total Cells Counted 100
[2018-01-22] MEDS ORDERED: PROMETHAZINE 25 MG/1 ML VIAL ONE ×3 (07:36→16:30)
[2018-01-22] MEDS: PROMETHAZINE INJ 25 MG in SODIUM CHLORIDE 0.9% 50 ML IV PRN ×2 (08:00→17:04)
[2018-01-22] MEDS: ALPRAZolam 0.5 MG TABLET PO PRN ×3 (08:00→21:18)
[2018-01-22] MEDS: DIAZEPAM 5 MG TABLET PO PRN ×2 (08:00→12:56)
[2018-01-22] MEDS: ASPIRIN CHEW 81 MG TABLET PO SCH (10:27)
[2018-01-22] MEDS: DOCUSATE SODIUM 100 MG/10 ML UDCUP PO SCH ×2 (10:27→20:44)
[2018-01-22] MEDS: FUROSEMIDE 40 MG/4 ML VIAL IV SCH ×2 (10:27→16:15)
[2018-01-22] MEDS: METOPROLOL TARTRATE 25 MG TABLET PO SCH ×2 (10:28→20:45)
[2018-01-22] MEDS: NYSTATIN CREAM 15 GM TUBE TOP SCH ×2 (10:28→21:03)
[2018-01-22] MEDS: ENOXAPARIN 40 MG/0.4 ML SYRINGE SUBCUT SCH (10:28)
[2018-01-22] MEDS: MAGNESIUM OXIDE 400 MG TABLET PO SCH ×2 (10:28→20:46)
[2018-01-22] MEDS: FERROUS SULFATE 325 MG TABLET PO SCH ×3 (10:28→20:44)
[2018-01-22] MEDS: LEVOFLOXACIN 750 MG TABLET PO SCH (10:28)
[2018-01-22] MEDS: FOLIC ACID 1 MG TABLET PO SCH (10:28)
[2018-01-22] MEDS: SODIUM CHLORIDE 1 GM TABLET PO SCH ×3 (10:29→20:46)
[2018-01-22] MEDS: CLOPIDOGREL 75 MG TABLET PO SCH (10:29)
[2018-01-22] MEDS: PANTOPRAZOLE 40 MG TABLET PO SCH (10:29)
[2018-01-22] MEDS: ASCORBIC ACID 500 MG TABLET PO SCH ×2 (10:29→20:44)
[2018-01-22] MEDS: ZINC OXIDE PASTE 113 GM TUBE TOP PRN (10:30)
[2018-01-22] MEDS ORDERED: FUROSEMIDE 20 MG/2 ML VIAL ONE (12:20)
[2018-01-22] MEDS: LOPERAMIDE 2 MG CAPSULE PO PRN (12:56)
[2018-01-22] MEDS ORDERED: SODIUM CHLORIDE 0.9% 1,000 ML IV PRN ×2 (14:42→16:10)
[2018-01-22] MEDS: ATORVASTATIN 40 MG TABLET PO SCH (20:44)
[2018-01-23] MEDS: PHENYLEPHRINE INJ 160 MG in SODIUM CHLORIDE 0.9% 234 ML IV SCH ×2 (00:45→16:40)
[2018-01-23] MEDS: INSULIN REGULAR 100 UNIT/ML SUBCUT SCH ×4 (00:46→18:53)
[2018-01-23] MEDS: ALBUTEROL/IPRATROPIUM 3 ML NEB RESP TX SCH ×4 (00:49→18:07)
[2018-01-23] MEDS: MORPHINE 2 MG/1 ML SYRINGE IV PRN ×4 (01:28→21:41)
[2018-01-23] MEDS: PIPERACILLIN/TAZOBACTAM 3,375 MG in SODIUM CHLORIDE 0.9% 100 ML IV SCH ×2 (01:31→08:46)
[2018-01-23] MEDS: VANCOMYCIN INJ 1,500 MG in SODIUM CHLORIDE 0.9% 500 ML IV SCH (06:08)
[2018-01-23] MEDS: ALPRAZolam 0.5 MG TABLET PO PRN ×2 (06:29→13:54)
[2018-01-23 07:13] LABS: Calcium 8.3 MG/DL (8.5-10.1); Osmolality,Calculated 269.2 MOS/KG (273-304); Potassium 3.6 MMOL/L (3.5-5.1)
[2018-01-23 07:21] LABS: Basophils # 0.1 10*3/uL (0.0-0.2); Basophils % 0.6 % (0.0-0.8); Eosinophils # 0.4 10*3/uL (0.0-0.87); Eosinophils % 1.6 % (0.00-10.9); Hematocrit 34.1 VOL% (35.7-47.0); Immature Granulocytes % 0.8 %; Immature Granulocytes Absolute 0.19 #; Lymphocytes # 3.1 10*3/uL (1.4-4.0); Lymphocytes % 12.7 % (21.3-54.2); Mean Corpuscular Hemoglobin 22 PG (27-34); Mean Corpuscular Volume 69.5 FL (87-102); Mean Platelet Volume 9.4 FL (9.6-12.0); Monocytes # 1.1 10*3/uL (0.11-0.8); Monocytes % 4.6 % (1.7-12.7); Neutrophils # 19.4 10*3/uL (1.4-7.4); Neutrophils % 79.7 % (38.7-73.9); Platelet Count 416 T/CUMM (130-400); Red Blood Count 4.91 MC/CUMM (3.8-5.5); Red Cell Distribution Width 26.5 % (9.3-17.3); White Blood Count 24.4 T/CUMM (4-12)
[2018-01-23 07:23] LABS: Hemoglobin 10.9 GM/DL (12.0-16.0)
[2018-01-23] MEDS: FUROSEMIDE 40 MG/4 ML VIAL IV SCH ×2 (07:39→16:58)
[2018-01-23 07:41] LABS: Giant Platelets Few; Hypochromasia 1+; Lymphocytes 9 % (20-55); Platelet Estimate Adequate; Segmented Neutrophils 87 % (50-85); Total Cells Counted 100
[2018-01-23 07:42] LABS: Microcytosis 1+
[2018-01-23] MEDS: DOCUSATE SODIUM 100 MG/10 ML UDCUP PO SCH ×2 (08:43→21:38)
[2018-01-23] MEDS ORDERED: predniSONE 20 MG TABLET PO SCH (09:00)
[2018-01-23] MEDS ORDERED: methylPREDNISolone SOD SUC 125 MG/2 ML VIAL IV ONE (09:10)
[2018-01-23] MEDS: FERROUS SULFATE 325 MG TABLET PO SCH ×3 (09:21→21:40)
[2018-01-23] MEDS: MAGNESIUM OXIDE 400 MG TABLET PO SCH ×2 (09:21→21:40)
[2018-01-23] MEDS: ASCORBIC ACID 500 MG TABLET PO SCH ×2 (09:22→21:40)
[2018-01-23] MEDS: LEVOFLOXACIN 750 MG TABLET PO SCH (09:22)
[2018-01-23] MEDS: ASPIRIN CHEW 81 MG TABLET PO SCH (09:23)
[2018-01-23] MEDS: SODIUM CHLORIDE 1 GM TABLET PO SCH (09:23)
[2018-01-23] MEDS: CLOPIDOGREL 75 MG TABLET PO SCH (09:23)
[2018-01-23] MEDS: PANTOPRAZOLE 40 MG TABLET PO SCH (09:23)
[2018-01-23] MEDS: FOLIC ACID 1 MG TABLET PO SCH (09:24)
[2018-01-23] MEDS: METOPROLOL TARTRATE 25 MG TABLET PO SCH ×2 (09:24→21:41)
[2018-01-23] MEDS: ENOXAPARIN 40 MG/0.4 ML SYRINGE SUBCUT SCH (09:33)
[2018-01-23] MEDS: NYSTATIN CREAM 15 GM TUBE TOP SCH ×2 (09:35→21:40)
[2018-01-23 10:06] LABS: ABG Base Excess -4.5 MMOL/L (-2.5-2.5); ABG HCO3 20.7 MMOL/L (20-26); ABG Oxygen Saturation 96.1 % (95-100); ABG PCO2 64.5 MM HG (35-48); ABG PO2 95.6 MM HG (80-95); ABG TCO2 23.1 MMOL/L (23-27); Allen Test Positive; Pt O2 Delivery Device Simple Mask
[2018-01-23 10:22] LABS: ABG PH 7.197 (7.35-7.45)
[2018-01-23] MEDS: ATORVASTATIN 40 MG TABLET PO SCH (21:40)
[2018-01-23] MEDS: methylPREDNISolone SOD SUC 40 MG/1 ML VIAL IV SCH (21:43)
[2018-01-24] MEDS: INSULIN REGULAR 100 UNIT/ML SUBCUT SCH ×4 (00:34→18:58)
[2018-01-24] MEDS: ALBUTEROL/IPRATROPIUM 3 ML NEB RESP TX SCH ×5 (00:57→19:46)
[2018-01-24] MEDS: MORPHINE 2 MG/1 ML SYRINGE IV PRN ×3 (05:25→22:36)
[2018-01-24 05:58] LABS: Basophils % 0.1 % (0.0-0.8); Hematocrit 33.4 VOL% (35.7-47.0); Hemoglobin 10.7 GM/DL (12.0-16.0); Immature Granulocytes % 1.6 %; Immature Granulocytes Absolute 0.25 #; Lymphocytes # 0.9 10*3/uL (1.4-4.0); Lymphocytes % 5.7 % (21.3-54.2); Mean Corpuscular Hemoglobin 22 PG (27-34); Mean Corpuscular Volume 69.4 FL (87-102); Mean Platelet Volume 9.2 FL (9.6-12.0); Monocytes # 0.3 10*3/uL (0.11-0.8); Monocytes % 1.9 % (1.7-12.7); Neutrophils # 13.9 10*3/uL (1.4-7.4); Neutrophils % 90.7 % (38.7-73.9); Platelet Count 446 T/CUMM (130-400); Red Blood Count 4.81 MC/CUMM (3.8-5.5); Red Cell Distribution Width 26.2 % (9.3-17.3); White Blood Count 15.4 T/CUMM (4-12)
[2018-01-24 06:03] LABS: Hypochromasia Slight; Lymphocytes 7 % (20-55); Platelet Estimate Adequate; Segmented Neutrophils 92 % (50-85); Total Cells Counted 100
[2018-01-24 06:14] LABS: Calcium 9.1 MG/DL (8.5-10.1); Osmolality,Calculated 275.4 MOS/KG (273-304)
[2018-01-24] MEDS: ALPRAZolam 0.5 MG TABLET PO PRN ×2 (08:21→20:26)
[2018-01-24] MEDS: ASPIRIN CHEW 81 MG TABLET PO SCH (08:24)
[2018-01-24] MEDS: FUROSEMIDE 40 MG/4 ML VIAL IV SCH (08:25)
[2018-01-24] MEDS: DOCUSATE SODIUM 100 MG/10 ML UDCUP PO SCH ×2 (10:12→20:27)
[2018-01-24] MEDS: FOLIC ACID 1 MG TABLET PO SCH (10:12)
[2018-01-24] MEDS: METOPROLOL TARTRATE 25 MG TABLET PO SCH ×2 (10:12→20:27)
[2018-01-24] MEDS: ENOXAPARIN 40 MG/0.4 ML SYRINGE SUBCUT SCH (10:12)
[2018-01-24] MEDS: LEVOFLOXACIN 750 MG TABLET PO SCH (10:12)
[2018-01-24] MEDS: FERROUS SULFATE 325 MG TABLET PO SCH ×3 (10:12→20:26)
[2018-01-24] MEDS: PANTOPRAZOLE 40 MG TABLET PO SCH (10:13)
[2018-01-24] MEDS: NYSTATIN CREAM 15 GM TUBE TOP SCH ×2 (10:13→20:27)
[2018-01-24] MEDS: MAGNESIUM OXIDE 400 MG TABLET PO SCH ×2 (10:13→20:26)
[2018-01-24] MEDS: ASCORBIC ACID 500 MG TABLET PO SCH ×2 (10:13→20:26)
[2018-01-24] MEDS: methylPREDNISolone SOD SUC 40 MG/1 ML VIAL IV SCH ×2 (10:13→20:32)
[2018-01-24] MEDS: CLOPIDOGREL 75 MG TABLET PO SCH (10:13)
[2018-01-24] MEDS: PHENYLEPHRINE INJ 160 MG in SODIUM CHLORIDE 0.9% 234 ML IV SCH (15:54)
[2018-01-24] MEDS ORDERED: FUROSEMIDE 40 MG TABLET PO SCH (16:00)
[2018-01-24] MEDS: ATORVASTATIN 40 MG TABLET PO SCH (20:26)
[2018-01-25] MEDS: PHENYLEPHRINE INJ 160 MG in SODIUM CHLORIDE 0.9% 234 ML IV SCH (00:07)
[2018-01-25] MEDS: INSULIN REGULAR 100 UNIT/ML SUBCUT SCH ×3 (00:08→13:10)
[2018-01-25] MEDS: ALBUTEROL/IPRATROPIUM 3 ML NEB RESP TX SCH ×2 (00:23→07:55)
[2018-01-25 05:39] LABS: Basophils % 0.1 % (0.0-0.8); Hematocrit 27.7 VOL% (35.7-47.0); Hemoglobin 9.3 GM/DL (12.0-16.0); Immature Granulocytes % 2.1 %; Lymphocytes # 0.8 10*3/uL (1.4-4.0); Lymphocytes % 8.6 % (21.3-54.2); Mean Corpuscular HGB Conc 33.6 GM/DL (32-36); Mean Corpuscular Hemoglobin 23 PG (27-34); Mean Corpuscular Volume 67.9 FL (87-102); Mean Platelet Volume 9.5 FL (9.6-12.0); Monocytes # 0.3 10*3/uL (0.11-0.8); Monocytes % 3.4 % (1.7-12.7); NRBC # 0.02 10*3/uL; Neutrophils % 85.8 % (38.7-73.9); Platelet Count 302 T/CUMM (130-400); Red Blood Count 4.08 MC/CUMM (3.8-5.5); Red Cell Distribution Width 26.4 % (9.3-17.3); White Blood Count 9.4 T/CUMM (4-12)
[2018-01-25 06:22] LABS: Potassium 4.2 MMOL/L (3.5-5.1)
[2018-01-25 06:43] LABS: Giant Platelets Few; Hypochromasia 1+; Ovalocytes Slight; Platelet Estimate Adequate
[2018-01-25 06:44] LABS: Microcytosis Slight
[2018-01-25] MEDS: MAGNESIUM OXIDE 400 MG TABLET PO SCH (08:40)
[2018-01-25] MEDS: FERROUS SULFATE 325 MG TABLET PO SCH (08:40)
[2018-01-25] MEDS: FOLIC ACID 1 MG TABLET PO SCH (08:40)
[2018-01-25] MEDS: ASCORBIC ACID 500 MG TABLET PO SCH (08:40)
[2018-01-25] MEDS: ASPIRIN CHEW 81 MG TABLET PO SCH (08:40)
[2018-01-25] MEDS: PANTOPRAZOLE 40 MG TABLET PO SCH (08:40)
[2018-01-25] MEDS: CLOPIDOGREL 75 MG TABLET PO SCH (08:40)
[2018-01-25] MEDS: DOCUSATE SODIUM 100 MG/10 ML UDCUP PO SCH (08:41)
[2018-01-25] MEDS: LEVOFLOXACIN 750 MG TABLET PO SCH (08:41)
[2018-01-25] MEDS: ENOXAPARIN 40 MG/0.4 ML SYRINGE SUBCUT SCH (08:41)
[2018-01-25] MEDS: methylPREDNISolone SOD SUC 40 MG/1 ML VIAL IV SCH (08:45)
[2018-01-25] MEDS: METOPROLOL TARTRATE 25 MG TABLET PO SCH (08:58)
[2018-01-25] MEDS: NYSTATIN CREAM 15 GM TUBE TOP SCH (08:59)
[2018-01-25] MEDS: MORPHINE 2 MG/1 ML SYRINGE IV PRN (10:31)
[2018-01-25 14:02] VITALS: BP 97/62
== END 2018-01-25 13:30 | disposition hospice, home (50) | DRG 208 ==
LOC: EDBD → EDUNIT# → N.ED 01:10 → SUATTDRO 02:36 → N.EDINP 02:36 → N.5E 02:50 → N.CC 01-20 00:05
PROVIDERS: ATTEND Internal Medicine